=== PATIENT | male | born 1930 | race Caucasian/White ===

== ENCOUNTER 2018-09-07 04:32 | Emergency (ER) | payer OTHER ==
[~2018-09-07] VITALS: Ht 172.7 cm; Wt 72.6 kg
[2018-09-07 05:20] LABS: Basophils # (auto) 0.1 uL; Basophils % (auto) 0.9 % (0.0-2.0); Eosinophils # (auto) 0.1 uL; Hematocrit 31.4 % (41.0-53.0); Hemoglobin 10.8 g/dL (13.5-17.5); Lymphocytes # (auto) 1.3 uL; Lymphocytes % (auto) 22.3 % (10.0-50.0); Mean Corpuscular Hemoglobin 31.8 pg (28.0-32.0); Mean Corpuscular Hgb Conc. 34.3 g/dL (32.0-36.0); Mean Corpuscular Volume 92.5 fL (80.0-100.0); Monocytes # (auto) 0.7 uL; Neutrophils # (auto) 3.7 uL; Neutrophils % (auto) 62.8 % (37.0-80.0); Nucleated Red Blood Cells % 0.1 %; Platelet Count (auto) 209 10^3/uL (140-450); White Blood Cell 5.9 10^3/uL (4.4-10.8)
[2018-09-07] MEDS ORDERED: MORPHINE SULFATE 4 MG/ML SYR/VIAL IV ONE (05:30)
[2018-09-07 05:37] LABS: Albumin 3.8 g/dL (3.4-5.0); Calcium 8.3 mg/dL (8.5-10.1); INR 1.05 (0.9-1.15); Magnesium 2.2 mg/dL (1.6-2.6); Partial Thromboplastin Time 25.7 sec (23.78-33.04); Potassium 4.7 mmol/L (3.5-5.1); Prothrombin Time 11.2 sec (9.27-12.13)
[2018-09-07 05:40] LABS: BUN/Creatinine Ratio 21.2; Bilirubin, Total 0.9 mg/dL (0.2-1.0)
[2018-09-07 06:00] LABS: Red Cell Distribution Width 26.1 % (11.8-14.3)
[2018-09-07 06:13] LABS: Urine Bacteria FEW /hpf (None Seen); Urine Blood Negative /uL (Negative); Urine Hyaline Cast FEW /lpf (0 - 2); Urine Mucus FEW (None Seen); Urine Specific Gravity 1.014 (1.001-1.035); Urine WBC 1 /hpf (0 - 3)
[2018-09-07 06:54] VITALS: BP 116/66
== END 2018-09-07 10:29 | disposition home or self-care (01) ==
LOC: ER 04:32 → EDBD 04:32 → ER 10:29
DX: R06.02 Shortness of breath (principal); N18.3 Chronic kidney disease, stage 3 (moderate); D63.8 Anemia in other chronic diseases classified elsewhere; G81.94 Hemiplegia, unspecified affecting left nondominant side; S22.42XD Multiple fractures of ribs, left side, subsequent encounter for fracture with routine healing; Z95.1 Presence of aortocoronary bypass graft; Z89.432 Acquired absence of left foot; Z86.73 Personal history of transient ischemic attack (TIA), and cerebral infarction without residual deficits; W19.XXXD Unspecified fall, subsequent encounter
CPT/HCPCS: 36415; 71045; 80053; 81001; 83036; 83735; 83880; 84484; 85025; 85379; 85610; 85730; 93005; 94761; 96374; 99284; J2270